=== PATIENT | male | born 1945 | race Caucasian/White ===

== ENCOUNTER 2024-02-01 09:55 | Outpatient (RCR) | payer MEDICARE, OTHER, SELFPAY | END 2024-02-01 23:59 | disposition home or self-care (01) | LOC: RPT 09:55 | PROVIDERS: ATTENDING PHYSICIAN Psychiatry & Neurology Behavioral Neurology & Neuropsychiatry; FAMILY PHYSICIAN Family Medicine | DX: G23.2 Striatonigral degeneration (principal); M25.552 Pain in left hip; M79.662 Pain in left lower leg; Z91.81 History of falling; Z73.6 Limitation of activities due to disability | CPT/HCPCS: 97110; 97112; 97116; 97163; 97530 ==

== ENCOUNTER 2024-02-29 15:10 | Outpatient (RCR) | payer MEDICARE, OTHER, SELFPAY | END 2024-02-29 23:59 | disposition home or self-care (01) | LOC: RPT 15:10 | PROVIDERS: ATTENDING PHYSICIAN Psychiatry & Neurology Behavioral Neurology & Neuropsychiatry; FAMILY PHYSICIAN Family Medicine | DX: G23.2 Striatonigral degeneration (principal); M79.672 Pain in left foot; M79.671 Pain in right foot; M76.821 Posterior tibial tendinitis, right leg; M76.822 Posterior tibial tendinitis, left leg; M77.8 Other enthesopathies, not elsewhere classified; Z73.6 Limitation of activities due to disability | CPT/HCPCS: 97110; 97112; 97116; 97140; 97530 ==

== ENCOUNTER 2024-04-01 14:08 | Outpatient (RCR) | payer MEDICARE, OTHER, SELFPAY | END 2024-04-01 23:59 | disposition home or self-care (01) | LOC: RPT 14:08 | PROVIDERS: ATTENDING PHYSICIAN Psychiatry & Neurology Behavioral Neurology & Neuropsychiatry; FAMILY PHYSICIAN Family Medicine | DX: G23.2 Striatonigral degeneration (principal); M79.672 Pain in left foot; M79.671 Pain in right foot; M76.821 Posterior tibial tendinitis, right leg; M76.822 Posterior tibial tendinitis, left leg; M77.8 Other enthesopathies, not elsewhere classified | CPT/HCPCS: 97110; 97112; 97116; 97530 ==

== ENCOUNTER 2024-04-24 15:03 | Outpatient (RCR) | payer MEDICARE, OTHER, SELFPAY | END 2024-04-24 23:59 | disposition home or self-care (01) | LOC: RPT 15:03 | PROVIDERS: ATTENDING PHYSICIAN Psychiatry & Neurology Behavioral Neurology & Neuropsychiatry; FAMILY PHYSICIAN Family Medicine | DX: G23.2 Striatonigral degeneration (principal); M79.672 Pain in left foot; M79.671 Pain in right foot; M76.821 Posterior tibial tendinitis, right leg; M76.822 Posterior tibial tendinitis, left leg; M77.8 Other enthesopathies, not elsewhere classified; Z73.6 Limitation of activities due to disability | CPT/HCPCS: 97110; 97112; 97116; 97530 ==

== ENCOUNTER → 2024-05-22 15:30 | Outpatient (REF) | payer MEDICARE, OTHER, SELFPAY | LOC: PAVMRI 15:30 | PROVIDERS: ATTENDING PHYSICIAN Pain Medicine Interventional Pain Medicine; FAMILY PHYSICIAN Family Medicine | DX: M54.16 Radiculopathy, lumbar region (principal) | CPT/HCPCS: 72148 ==

== ENCOUNTER → 2024-06-10 15:25 | Outpatient (REF) | payer MEDICARE, OTHER, SELFPAY | LOC: RAD 15:25 | PROVIDERS: ATTENDING PHYSICIAN Physical Medicine & Rehabilitation; FAMILY PHYSICIAN Family Medicine | DX: Z01.818 Encounter for other preprocedural examination (principal) | CPT/HCPCS: 93005 ==

== ENCOUNTER 2024-11-01 16:46 | Emergency (ER) | payer MEDICARE, OTHER, SELFPAY ==
[2024-11-01 16:56] VITALS: BP 134/84
[2024-11-01 19:08] VITALS: BP 141/97
--- NOTE | 2024-11-01 19:22 | ED.GENMED ---
History of Present Illness
General
Chief Complaint: Head Injury
Source: patient
Exam Limitations: none
Time Seen by Provider: 11/01/24 18:09
Nursing documentation reviewed up to this point in time: agreed with
History of Present Illness
History of Present Illness:
79-year-old male past medical history of Parkinson's, GERD presenting to the emergency department today after tripping down 2 steps landing on his right arm also comes and hit his head but did not lose consciousness not on blood thinners. Denies
additional concerns no numbness or weakness no chest pain abdominal pain or additional symptoms
Past History
Past History
ED Past Medical History: GERD and Other (Chronic intermittent lower back pain with herniations. This is no worse due to this fall, rather pain is mid right buttock only.)
ED Past Surgical History: Other (Hernia surgery x 3. L shoulder surgery.)
Social History
Tobacco: Non-smoker
Personal:
Living: with family
Employment: Employed (works from home)
Review of Systems
Review of Systems
Allergies reviewed?: Yes
All Other Systems: ROS reviewed and negative except as documented in HPI and ROS
Phy Exam
Physical Exam
Physical Exam:
GENERAL: Alert , in no apparent distress
EYE: pupils equal and reactive
NECK: Supple, no significant adenopathy.
ENT: o/p clr, mmm.
CARDIAC: Regular rate and rhythm .
LUNGS: Clear breath sounds bilaterally, no acute respiratory distress, no wheezes/rales/rhonchi
ABDOMEN: Soft, without focal tenderness, no r/g, no cvat
NEUROLOGICAL: Alert and oriented, no focal neuro deficits
SKIN: Warm and dry, skin intact.
MUSCULOSKELETAL: No edema, well perfused.
PSYCH: Normal and appropriate interaction.
Course
Orders/Labs/Results
Orders:
Orders
11/01/24 16:52
CT Head W/o Iv Contrast Urgent
Comment:
Reason For Exam: head injury
Shoulder, Right, Trauma [CR Shoulder, Trauma - Right] Urgent
Comment:
Reason For Exam: pain after a fall
11/01/24 16:53
CT Cervical Spine W/o Iv Contr Urgent
Reason For Exam: fall, head injury
Vital Signs
Initial and Last Documented VS:
Initial Vital Signs
Temp Pulse Resp BP Pulse Ox
98.4 F 68 16 134/84 98
11/01/24 16:56 11/01/24 16:56 11/01/24 16:56 11/01/24 16:56 11/01/24 16:56
Last Documented Vital Signs
Temp Pulse Resp BP Pulse Ox
98.4 F 118 18 141/97 98
11/01/24 16:56 11/01/24 19:08 11/01/24 19:08 11/01/24 19:08 11/01/24 16:56
MDM/Problems Addressed
MDM/Problems Addressed:
79-year-old male presenting to the emergency department today with concerns of right shoulder discomfort after falling hitting his head did not lose consciousness. Not on blood thinners. Vital signs are normal on arrival. Patient does have
discomfort to the right deltoid with movement but no specific focal tenderness. No bony tenderness. Neck CT without emergent findings, x-ray normal. Patient stable for outpatient management no evidence of emergent injury. Return precautions
given.
*Critical Care Note
Total Time (30-74mins, 75-104mins- exclusive of procedures): Not Applicable
ED Attending Note
-
Portions of this chart may have been created with voice recognition software.� Occasional wrong word or��sound alike� substitutions may have occurred due to the inherent limitations of voice recognition software.
Discharge Plan
Departure
Patient Disposition: Home (Routine Discharge)
Date of Disposition: 11/01/24
Time of Disposition: 19:23
Patient with high blood pressure during this ER visit?: No
Condition: Good
Covid-19: Not Applicable
Discharge Problem:
Fall, Shoulder sprain
Instructions: Sprain
Prescriptions:
No Action
cyclobenzaprine 10 MG tablet
10 mg PO TIDPRN PRN (Reason: muscle spasm/tightness) Qty: 30 0RF
Referrals:
Ramsey Whyte MD [Family Provider] -
Activity Restrictions/Additional Instructions:
You came to the emergency department today with concerns after a fall. Here you had a reassuring assessment. Please follow closely with your primary care doctor. Return for any worsening, new or concerning symptoms.
Interventions
Interventions:
*Risk Screen - Suicide Last Done: 11/01/24 17:01
*General Assessment Last Done: 11/01/24 17:45
*Neglect/Abuse Screening Last Done: 11/01/24 17:01
*ED COVID-19 Vaccine History Last Done: 11/01/24 17:45
ED- Neurological Assessment Last Done: 11/01/24 17:52
ED-Skin Assessment Last Done: 11/01/24 17:52
Discharge Date and Time
Print Language: URDU
== END 2024-11-01 19:37 | disposition home or self-care (01) ==
LOC: EMR 16:46
PROVIDERS: EMERGENCY PHYSICIAN Student in an Organized Health Care Education/Training Program; FAMILY PHYSICIAN Internal Medicine Cardiovascular Disease
DX: S43.401A Unspecified sprain of right shoulder joint, initial encounter (principal); S09.90XA Unspecified injury of head, initial encounter; W10.9XXA Fall (on) (from) unspecified stairs and steps, initial encounter; G20.A1 Parkinson's disease without dyskinesia, without mention of fluctuations; K21.9 Gastro-esophageal reflux disease without esophagitis
CPT/HCPCS: 99284; 70450; 72125; 73030

== ENCOUNTER 2024-12-31 13:08 | Outpatient (RCR) | payer MEDICARE, OTHER, SELFPAY | END 2024-12-31 23:59 | disposition home or self-care (01) | LOC: RPT 13:08 | PROVIDERS: ATTENDING PHYSICIAN Family Medicine | DX: R48.2 Apraxia (principal); G90.3 Multi-system degeneration of the autonomic nervous system; Z73.6 Limitation of activities due to disability; R26.89 Other abnormalities of gait and mobility; M62.81 Muscle weakness (generalized); R26.2 Difficulty in walking, not elsewhere classified; M54.50 Low back pain, unspecified; M25.561 Pain in right knee; Z91.81 History of falling | CPT/HCPCS: 97110; 97112; 97116; 97163; 97530 ==

== ENCOUNTER 2025-01-30 13:00 | Outpatient (RCR) | payer MEDICARE, OTHER, SELFPAY | END 2025-01-30 23:59 | disposition home or self-care (01) | LOC: RPT 13:00 | PROVIDERS: ATTENDING PHYSICIAN Family Medicine | DX: R48.2 Apraxia (principal); G90.3 Multi-system degeneration of the autonomic nervous system; Z73.6 Limitation of activities due to disability; R26.89 Other abnormalities of gait and mobility; M62.81 Muscle weakness (generalized); R26.2 Difficulty in walking, not elsewhere classified; M54.50 Low back pain, unspecified; M25.561 Pain in right knee; Z91.81 History of falling | CPT/HCPCS: 97110; 97112; 97116; 97530 ==

== ENCOUNTER 2025-03-02 13:17 | Outpatient (RCR) | payer MEDICARE, OTHER, SELFPAY | END 2025-03-02 23:59 | disposition home or self-care (01) | LOC: RPT 13:17 | PROVIDERS: ATTENDING PHYSICIAN Family Medicine | DX: R48.2 Apraxia (principal); G90.3 Multi-system degeneration of the autonomic nervous system; Z73.6 Limitation of activities due to disability; R26.89 Other abnormalities of gait and mobility; M62.81 Muscle weakness (generalized); R26.2 Difficulty in walking, not elsewhere classified; M54.50 Low back pain, unspecified; M25.561 Pain in right knee; Z91.81 History of falling | CPT/HCPCS: 97110; 97112; 97116; 97530 ==

== ENCOUNTER 2025-04-02 15:18 | Outpatient (RCR) | payer MEDICARE, OTHER, SELFPAY | END 2025-04-02 23:59 | disposition home or self-care (01) | LOC: RPT 15:18 | PROVIDERS: ATTENDING PHYSICIAN Family Medicine | DX: R48.2 Apraxia (principal); G90.3 Multi-system degeneration of the autonomic nervous system; Z73.6 Limitation of activities due to disability; R26.89 Other abnormalities of gait and mobility; M62.81 Muscle weakness (generalized); R26.2 Difficulty in walking, not elsewhere classified; M54.50 Low back pain, unspecified; M25.561 Pain in right knee; Z91.81 History of falling | CPT/HCPCS: 97110; 97112; 97116; 97530 ==

== ENCOUNTER 2025-04-30 13:25 | Outpatient (RCR) | payer MEDICARE, OTHER, SELFPAY | END 2025-04-30 23:59 | disposition home or self-care (01) | LOC: RPT 13:25 | PROVIDERS: ATTENDING PHYSICIAN Family Medicine | DX: R48.2 Apraxia (principal); G90.3 Multi-system degeneration of the autonomic nervous system; Z73.6 Limitation of activities due to disability; R26.89 Other abnormalities of gait and mobility; M62.81 Muscle weakness (generalized); R26.2 Difficulty in walking, not elsewhere classified; M54.50 Low back pain, unspecified; M25.561 Pain in right knee; Z91.81 History of falling | CPT/HCPCS: 97110; 97112; 97116; 97530 ==

== ENCOUNTER → 2025-07-14 10:41 | Outpatient (REF) | payer MEDICARE, OTHER, SELFPAY | LOC: MRI 3T 10:41 | PROVIDERS: ATTENDING PHYSICIAN Family Medicine | DX: M54.9 Dorsalgia, unspecified (principal) | CPT/HCPCS: 72148 ==